=== PATIENT | female | born 1995 | race African-American/Black ===

== ENCOUNTER 2016-12-05 19:41 | Emergency (ER) | payer OTHER ==
[~2016-12-05] VITALS: Ht 167.6 cm; Wt 70.3 kg
[2016-12-05] MEDS ORDERED: BUSP5TA PO (19:48)
[2016-12-05] MEDS ORDERED: CELE40TA PO (19:48)
[2016-12-05] MEDS ORDERED: MOTR200T44 PO (20:38)
[2016-12-05 20:53] VITALS: BP 149/82
--- NOTE | 2016-12-06 07:57 | REP ---
Clinical: Trauma . Technique: AP, lateral, bilateral oblique views left ankle . Findings: No acute fracture or dislocation. Skeletal structures and joint spaces are intact and normal. Mild lateral swelling consistent with inversion injury. Ankle mortise appears stable. No subcutaneous emphysema or radiodense foreign body. Impression: Mild lateral swelling. No acute fracture or dislocation. Signed by Floyd Marcos MD 12/06/2016 07:49 A
--- NOTE | 2016-12-06 07:57 | REP ---
Clinical: Trauma. Technique: AP, lateral, bilateral oblique views left foot . Findings: The osseous structures and joint spaces are intact and normal. There is no evidence for acute fracture or dislocation. Surrounding soft tissues are unremarkable. No subcutaneous emphysema or radiodense foreign body. Impression: Normal examination. No acute fracture or dislocation. Signed by Floyd Marcos MD 12/06/2016 07:48 A
== END 2016-12-05 21:10 | disposition home or self-care (01) ==
LOC: M ED 21:04
DX: S93.402A Sprain of unspecified ligament of left ankle, initial encounter (principal); W19.XXXA Unspecified fall, initial encounter; Y92.29 Other specified public building as the place of occurrence of the external cause; Y93.89 Activity, other specified; Y99.8 Other external cause status; Z79.899 Other long term (current) drug therapy; Z88.0 Allergy status to penicillin

== ENCOUNTER → 2017-04-07 | Outpatient (REF) | payer OTHER ==
[~2017-04-07] MED LIST: BUSP5TA PO; CELE40TA PO; MOTR200T44 PO
== END ==
LOC: M SFHCLERA 13:15
PROVIDERS: ATTEND Nurse Practitioner Family
DX: M54.9 Dorsalgia, unspecified (principal)